=== PATIENT | male | born 1995 | race Caucasian/White ===

== ENCOUNTER 2021-02-27 21:00 | Emergency (ER) | payer SELFPAY ==
--- NOTE | 2021-02-27 21:18 | EDM.PDOC ---
ED HPI GENERAL MEDICAL PROBLEM - General Stated Complaint: LT ELBOW INJURY Time Seen by Provider: 02/27/21 21:08 Source of Information: Reports: Patient History Limitations: Reports: No Limitations - History of Present Illness INITIAL COMMENTS - FREE TEXT/NARRATIVE: 25-year-old male presents with left elbow pain. He was jumping over a fence just prior to arrival, he tripped over the top of the fence and landed on his left elbow. Pain is localized to the left elbow, nonradiating, constant, sharp, moderate, alleviated with immobilization, exacerbated with range of motion and palpation. He denies left shoulder pain, headache, neck pain, nausea, vomiting, left wrist or forearm or hand pain. ROS: A 10-point review of systems, other than pertinent positives and negatives as stated per HPI, is otherwise negative Past medical history: No additional pertinent history Past Surgical history: No additional pertinent history Social history: No additional pertinent history Family history: No additional pertinent history PHYSICAL EXAM General: AOx4, GCS = 15, mild distress HEENT: dry mucous membrane Neck: supple, no meningismus, no Kernig or Brudzinski Cardiac: S1S2 RRR Respiratory: CTAB, no crackles or rales, no wheezing Abdomen: Soft, nontender, no rebound or guarding, nondistended, no pulsatile mass. Back: nontender Musculoskeletal: NVI distally, left elbow tender to palpation, no deformity. No snuffbox tenderness to the left wrist, no pain with thumb axial loading, no pain to the left hand or fingers or left forearm or left humerus or shoulder. Neuro: No focal deficits, CN 2 - 12 WNL. L elbow Pain Score (Numeric/FACES): 3 - Related Data Allergies Allergy/AdvReac Type Severity Reaction Status Date / Time No Known Allergies Allergy Verified 02/27/21 21:13 Home Meds: Home Meds Acetaminophen/oxyCODONE [Percocet 325-5 MG] 1 each PO Q6H PRN #12 tab 02/27/21 [Rx] Review of Systems - Review of Systems Review Of Systems: See Below (see dictation) ED EXAM, GENERAL - Physical Exam Exam: See Below (see dictation) ED TRAUMA EXTREMITY PROCEDURES - Splinting Left Upper Extremity Splint Site: elbow Pre-Procedure NV Status: Normal Post-Procedure NV Status: Normal Splint Material: Fiberglass Splint Design: Posterior Applied & Form Fitted By: Nurse Provider Post-Splint Application NV Check: NV Status Normal, Good Position Complications: No Course - Vital Signs Last Recorded V/S: Last Vital Signs Temp 98.1 F 02/27/21 21:14 Pulse 96 02/27/21 21:14 Resp 18 02/27/21 21:14 BP 116/79 02/27/21 21:14 Pulse Ox 99 02/27/21 21:14 - Orders/Labs/Meds Orders: Active Orders 24 hr Category Date Time Status Cooling Warming Measures [RC] ASDIRECTED Care 02/27/21 21:19 Active DME for Discharge [COMM] Stat Oth 02/27/21 21:18 Ordered Ice Pack [Ice Therapy] [OM.PC] Stat Oth 02/27/21 21:19 Ordered - Re-Assessments/Exams Free Text/Narrative Re-Assessment/Exam: 02/27/21 22:25 After splint/sling in the ER, he is NVI distally, and stable for discharge. I performed a repeat exam and did not appreciate new abnormal findings. Patient exhibits normal vital signs. I advised the patient to return to the ER for reevaluation if symptoms worsened, including fever, worsening pain, or any other worrisome symptoms. I instructed the patient to follow up with orthopedics within 3-5 days. MEDICAL DECISION MAKING: I reviewed the patients past medical records, lab and radiographic findings. I discussed the case with the patient. My differential diagnosis included: fracture, dislocation, contusion. His lef elbow demonstrated good distal perfusion, warm, pink, cap refill <2 seconds, compartments soft, pulses equal in both extremities. Patient understands to return immediately for worsening pain, swelling, fever, numbness/tingling or other concerns and to f/u with orthopedics within 3-5 days. Departure - Departure Time of Disposition: 22:26 Disposition: Home, Self-Care 01 Condition: Good Clinical Impression: Fracture of radial neck, closed - Discharge Information *PRESCRIPTION DRUG MONITORING PROGRAM REVIEWED*: Not Applicable *COPY OF PRESCRIPTION DRUG MONITORING REPORT IN PATIENT HITESH: Not Applicable Prescriptions: Acetaminophen/oxyCODONE [Percocet 325-5 MG] 1 each PO Q6H PRN #12 tab PRN Reason: Pain (Moderate 4-6) Instructions: Cast or Splint Care, Adult, [id number], Radial Fracture Rehab- SportsMed, How To Use a Sling, [id number] Referrals: PCP,None [Primary Care Provider] - 1 Week Forms: ED Department Discharge Additional Instructions: The need for follow-up, as well as the timing and circumstances, are variable depending upon the specifics of your emergency department visit. If you don't have a primary care physician on staff, we will provide you with a referral. We always advise you to contact your personal physician following an emergency department visit to inform them of the circumstance of the visit and for follow-up with them and/or the need for any referrals to a consulting specialist. The emergency department will also refer you to a specialist when appropriate. This referral assures that you have the opportunity for follow-up care with a specialist. All of these measure are taken in an effort to provide you with optimal care, which includes your follow-up. Under all circumstances we always encourage you to contact your private physician who remains a resource for coordinating your care. When calling for follow-up care, please make the office aware that this follow-up is from your recent emergency room visit. If for any reason you are refused follow-up, please contact the [facility] Emergency Department at and asked to speak to the emergency department charge nurse. Please follow up with the orthopedic clinic within 3-5 days. Orthopedic Clinic [facility] [address], [address] [place] [address] Sepsis Event Note (ED) - Focused Exam Vital Signs: Vital Signs Temp Pulse Resp BP Pulse Ox 02/27/21 21:14 98.1 F 96 18 116/79 99 - My Orders Last 24 Hours: My Active Orders 02/27/21 21:18 DME for Discharge [COMM] Stat 02/27/21 21:19 Cooling Warming Measures [RC] ASDIRECTED Ice Pack [Ice Therapy] [OM.PC] Stat - Assessment/Plan Last 24 Hours: My Active Orders 02/27/21 21:18 DME for Discharge [COMM] Stat 02/27/21 21:19 Cooling Warming Measures [RC] ASDIRECTED Ice Pack [Ice Therapy] [OM.PC] Stat
--- NOTE | 2021-02-27 22:07 | CR ---
Indication: Injury and pain Technique: Right elbow 3 views Comparison: None Findings: Joint effusion. Possible horizontal oblique lucency through the radial neck. Remainder normal. Impression: Suspicion of nondisplaced radial neck fracture with joint effusion. Dictated by Benito Chang MD @ Feb 27 2021 10:05PM Signed by Dr. Benito Chang @ Feb 27 2021 10:06PM
== END 2021-02-27 22:45 | disposition home or self-care (01) ==
LOC: MW.ED 21:00
DX: S52.132A Displaced fracture of neck of left radius, initial encounter for closed fracture (principal); W17.89XA Other fall from one level to another, initial encounter
CPT/HCPCS: 29105; 29125; 73080-26-LT; 73080-LT; 99283; 99283-25